=== PATIENT | male | born 1975 | race Caucasian/White ===

== ENCOUNTER 2018-01-06 13:15 | Emergency (ER) | payer OTHER ==
[~2018-01-06] VITALS: Ht 182.9 cm; Wt 100.0 kg
[2018-01-06] MEDS ORDERED: KETOROLAC TROMETHAMINE 60 MG/2 ML VIAL IM ONE (16:30)
[2018-01-06] MEDS ORDERED: METHOCARBAMOL 500 MG TABLET PO ONE (16:30)
[2018-01-06 18:01] VITALS: BP 143/79
== END 2018-01-06 18:03 | disposition home or self-care (01) ==
LOC: EMS 13:18
DX: S39.011A Strain of muscle, fascia and tendon of abdomen, initial encounter (principal); X58.XXXA Exposure to other specified factors, initial encounter; Y93.89 Activity, other specified; Y92.89 Other specified places as the place of occurrence of the external cause; Y99.8 Other external cause status
CPT/HCPCS: 96372; 99283; J1885

== ENCOUNTER 2024-02-18 20:06 | Emergency (ER) | payer MEDICAID, OTHER ==
[~2024-02-18] VITALS: Ht 185.4 cm; Wt 97.7 kg
[2024-02-18 20:24] VITALS: BP 150/97; PULSE 81; RESP 16; TEMP 98.6
[2024-02-18 20:36] LABS: COVID AG,FIA SOURCE NASAL SWAB
[2024-02-18 20:52] LABS: SARS-COV2 (COVID) ANTIGEN,FIA Negative (Negative)
[2024-02-18 20:53] LABS: INFLUENZA TYPE A NEGATIVE FOR TYPE A (NEGATIVE); INFLUENZA TYPE B NEGATIVE FOR TYPE B (NEGATIVE)
[2024-02-19] MEDS ORDERED: AMOX500C2 PO (04:40)
[2024-02-19] MEDS: CEPHALEXIN MONOHYDRATE 500 MG CAPSULE PO ONE (04:54)
== END 2024-02-19 05:49 | disposition home or self-care (01) ==
LOC: EMS 20:06
DX: H65.91 Unspecified nonsuppurative otitis media, right ear (principal); Z90.49 Acquired absence of other specified parts of digestive tract; Z88.2 Allergy status to sulfonamides; Z88.8 Allergy status to other drugs, medicaments and biological substances; Z20.822 Contact with and (suspected) exposure to COVID-19
CPT/HCPCS: 87804; 99283